=== PATIENT | male | born 1985 | race Caucasian/White ===

== ENCOUNTER 2017-04-24 13:10 | Emergency (ER) | payer MEDICAID ==
[~2017-04-24] VITALS: Ht 193 cm; Wt 93.0 kg
[2017-04-24 13:23] VITALS: BP 127/72
[2017-04-24] MEDS ORDERED: KETOROLAC TROMETHAMINE INJ 30 MG/ML VIAL ONE (13:38)
[2017-04-24] MEDS: KETOROLAC TROMETHAMINE INJ 30 MG/ML VIAL IM ONE (13:40)
== END 2017-04-24 13:42 | disposition home or self-care (01) ==
LOC: ER 13:16
DX: M54.16 Radiculopathy, lumbar region (principal)
CPT/HCPCS: 96372; 99283; A4606; J1885; Z7610